=== PATIENT | male | born 1955 | race Caucasian/White ===

== ENCOUNTER 2020-04-07 12:30 | Inpatient (IN) ==
[2020-04-07] MEDS ORDERED: 0.9 % Sodium Chloride 1,000 ML IVC ONE (13:22)
[2020-04-07 13:28] LABS: Basophils % 0.2 %; Eosinophils # 0.1 K/mcL (0.0-0.6); Eosinophils % 1.6 %; Hematocrit 43.5 % (37.5-50.1); Immature Granulocytes % 0.2 % (0-4); Lymphocytes % 11.2 %; Mean Corpuscular HGB Conc 29.9 g/dL (31.6-35.5); Mean Corpuscular Hemoglobin 27.7 pg (28.0-33.3); Mean Corpuscular Volume 92.6 fL (83.0-100.0); Mean Platelet Volume 10.7 fL (9.4-12.4); Monocytes # 0.9 K/mcL (0.0-1.3); Monocytes % 10.5 %; Platelet Count 137 K/mcL (140-400); Red Cell Distribution Width 15.4 % (11.5-14.5); Segmented Neutrophils % 76.3 %; White Blood Count 8.6 K/mcL (4.3-11.1)
[2020-04-07 13:29] LABS: Neutrophils # 6.6 K/mcL (1.6-8.9)
[2020-04-07 13:33] LABS: INR 1.5; Prothrombin Time 16.6 Seconds (9.4-12.1)
[2020-04-07 13:36] LABS: Activated Partial Thrombo Time 32.9 Seconds (26.0-36.0)
[2020-04-07] MEDS ORDERED: Isovue-370 500 ML BOTTLE IVP ONE (13:47)
[2020-04-07 13:59] LABS: Alanine Aminotransferase 15 Units/L (7-52); Albumin 3.6 g/dL (3.5-5.7); Albumin/Globulin Ratio 1.2 (1.1-2.2); Alkaline Phosphatase 98 Units/L (34-104); Aspartate Amino Transferase 13 Units/L (13-39); BUN/Creatinine Ratio 16 (6-26); Bilirubin,Direct 0.2 mg/dL (0.0-0.2); Bilirubin,Indirect 0.7 mg/dL (0.0-1.0); Bilirubin,Total 0.9 mg/dL (0.3-1.0); Blood Urea Nitrogen 34 mg/dL (8-23); Calcium 8.4 mg/dL (8.6-10.3); Carbon Dioxide 37 mEq/L (23-29); Chloride 94 mEq/L (98-107); Creatine Kinase 47 Units/L (30-223); Ethanol < 10 mg/dL (Less than 10); Glucose 251 mg/dL (70-105); Osmolality,Calculated 300 (280-300); Potassium 4.4 mEq/L (3.5-5.1); Sodium 137 mEq/L (136-145); Total Protein 6.6 g/dL (6.4-8.9); Troponin I < 0.03 ng/mL (< 0.04); eGFR For African Americans 37 (> 60); eGFR For Non-African Americans 31 (> 60)
[2020-04-07 14:00] LABS: VBG HCO3 40 mEq/L (21-27); VBG PCO2 95 mmHg (41-51); VBG PH 7.23 pH Units (7.32-7.42); VBG PO2 52 mmHg (25-50)
[2020-04-07 14:03] LABS: Thyroid Stimulating Hormone 0.819 mcIU/mL (0.340-5.600)
[2020-04-07 14:54] LABS: Bacteria,Urine Moderate per hpf (None-Few); Bilirubin,Urine Negative (Negative); Blood,Urine Moderate (Negative); Clarity,Urine Ex.Turbid (Clear); Glucose,Urine (UA) >=1000 mg/dL (Normal); Ketones,Urine Negative (Negative); Leukocyte Esterase,Urine Large (Negative); Mucus,Urine Few per lpf (None-Few); Nitrite,Urine Negative (Negative); Protein,Urine Negative (Neg-Trace); RBC,Urine 15-30 per hpf (0-3); Urobilinogen,Urine Normal (Normal); WBC,Urine TNTC per hpf (0-3)
[2020-04-07 15:05] LABS: Amphetamine Screen,Urine Negative ng/mL (Cutoff=1000); Barbiturate Screen,Urine Negative ng/mL (Cutoff=200); Benzodiazepines Screen,Urine Negative ng/mL (Cutoff=200); Cannabinoid Screen,Urine Negative ng/mL (Cutoff = 50); Cocaine Screen,Urine Negative ng/mL (Cutoff= 300); Opiate Screen,Urine Positive ng/mL (Cutoff=300); Phencyclidine Screen,Urine Negative ng/mL (Cutoff=25)
[2020-04-07] MEDS ORDERED: cefTRIAXone 1,000 MG in 0.9 % Sodium Chloride Mini Bag 100 ML IVPB ONE (16:01)
[2020-04-07] MEDS ORDERED: cefTRIAXone 1,000 MG in Water for inj. (sterile) 10 ML IVP ONE (16:15)
[2020-04-07 16:35] LABS: VBG HCO3 33 mEq/L (21-27); VBG PCO2 63 mmHg (41-51); VBG PH 7.33 pH Units (7.32-7.42); VBG PO2 218 mmHg (25-50)
[2020-04-07] MEDS ORDERED: D5% in Water 1,000 ML IVC PRN (16:37)
[2020-04-07] MEDS ORDERED: Acetaminophen 325 MG TABLET PO PRN (16:37)
[2020-04-07] MEDS ORDERED: *HR* HYDROcodone/Acet 5/325 mg TABLET PO PRN (16:37)
[2020-04-07] MEDS ORDERED: *HR* Dextrose 50 % in Water (Vial) 50 ML VIAL IVP PRN (16:37)
[2020-04-07] MEDS ORDERED: Dextrose Gel 15 GM/37.5 ML TUBE PO PRN ×2 (16:37)
[2020-04-07] MEDS ORDERED: Naloxone 0.4 MG/ML INJ IVP PRN (16:37)
[2020-04-07] MEDS ORDERED: Ondansetron 4 MG/2 ML VIAL IVP PRN (16:37)
[2020-04-07 16:49] LABS: Adenovirus Not Detected (Not Detect); Bordetella Pertussis Not Detected (Not Detect); Chlamydophila pneumoniae Not Detected (Not Detect); Coronavirus 229E Not Detected (Not Detect); Coronavirus HKU1 Not Detected (Not Detect); Coronavirus NL63 Not Detected (Not Detect); Coronavirus OC43 Not Detected (Not Detect); Human Metapneumovirus Not Detected (Not Detect); Human Rhinovirus/Enterovirus Not Detected (Not Detect); Influenza A Subtype 2009 H1 Not Detected (Not Detect); Influenza B Not Detected (Not Detect); Mycoplasma pneumoniae Not Detected (Not Detect); Parainfluenza Virus 1 Not Detected (Not Detect); Parainfluenza Virus 2 Not Detected (Not Detect); Parainfluenza Virus 3 Not Detected (Not Detect); Parainfluenza Virus 4 Not Detected (Not Detect); Respiratory Syncytial Virus Not Detected (Not Detect); SARS-CoV-2 Not Detected (Not Detect)
[2020-04-07] MEDS ORDERED: Ipratropium/Albuterol Neb 3 ML IH PRN (17:02)
[2020-04-07] MEDS: MethylPREDNISolone 40 MG/ML VIAL IVP SCH (20:57)
[2020-04-07] MEDS: 0.9 % Sodium Chloride 1,000 ML IVC SCH (20:57)
[2020-04-07] MEDS ORDERED: Insulin DETEMIR 100 UNIT/ML X5UNITS SQ SCH (21:00)
[2020-04-07] MEDS: Ipratropium/Albuterol Neb 3 ML IH SCH (21:45)
[2020-04-07] MEDS: Budesonide/Formoterol 160/4.5 1 PUFF INH IH SCH (21:45)
[2020-04-08] MEDS: Ipratropium/Albuterol Neb 3 ML IH SCH ×2 (03:27→10:48)
[2020-04-08 06:53] LABS: Eosinophils % 0.1 %; Hematocrit 41.7 % (37.5-50.1); Hemoglobin 12.3 g/dL (12.9-16.9); Immature Granulocytes % 0.3 % (0-4); Lymphocytes # 0.4 K/mcL (0.6-4.6); Lymphocytes % 5.4 %; Mean Corpuscular HGB Conc 29.5 g/dL (31.6-35.5); Mean Corpuscular Hemoglobin 27.5 pg (28.0-33.3); Mean Corpuscular Volume 93.1 fL (83.0-100.0); Mean Platelet Volume 11.1 fL (9.4-12.4); Monocytes # 0.1 K/mcL (0.0-1.3); Monocytes % 1.7 %; Neutrophils # 7.2 K/mcL (1.6-8.9); Platelet Count 142 K/mcL (140-400); Red Blood Count 4.48 M/mcL (4.19-5.50); Red Cell Distribution Width 15.7 % (11.5-14.5); Segmented Neutrophils % 92.5 %; White Blood Count 7.8 K/mcL (4.3-11.1)
[2020-04-08 07:15] LABS: Potassium 5.3 mEq/L (3.5-5.1)
[2020-04-08 07:16] LABS: Magnesium 2.1 mg/dL (1.6-2.6)
[2020-04-08] MEDS: Insulin LISPRO 300 UNITS/3 ML VIAL SQ SCH ×4 (08:47→17:28)
[2020-04-08] MEDS: 0.9 % Sodium Chloride 1,000 ML IVC SCH ×4 (08:47→17:05)
[2020-04-08] MEDS: MethylPREDNISolone 40 MG/ML VIAL IVP SCH (08:48)
[2020-04-08] MEDS ORDERED: cefTRIAXone 1,000 MG in Water for inj. (sterile) 10 ML IVP SCH (09:00)
[2020-04-08] MEDS: Budesonide/Formoterol 160/4.5 1 PUFF INH IH SCH ×2 (10:48→19:53)
[2020-04-08] MEDS ORDERED: Famotidine 20 MG/2 ML VIAL IVP ONE (11:29)
[2020-04-08] MEDS ORDERED: Isovue-300 50ML VIAL ONE (15:07)
[2020-04-08] MEDS ORDERED: *HR* FentaNYL (PF) 100 MCG/2 ML VIAL IVP PRN (15:11)
[2020-04-08] MEDS ORDERED: Ipratropium/Albuterol Neb 3 ML IH PRN ×3 (15:13→16:43)
[2020-04-08] MEDS ORDERED: Lidocaine -MPF 2% 2 ML VIAL ONE (15:17)
[2020-04-08] MEDS ORDERED: Naloxone 0.4 MG/ML INJ IVP PRN (16:43)
[2020-04-08] MEDS ORDERED: Dextrose Gel 15 GM/37.5 ML TUBE PO PRN ×2 (16:43)
[2020-04-08] MEDS ORDERED: D5% in Water 1,000 ML IVC PRN (16:43)
[2020-04-08] MEDS ORDERED: *HR* Dextrose 50 % in Water (Vial) 50 ML VIAL IVP PRN (16:43)
[2020-04-08] MEDS ORDERED: Acetaminophen 325 MG TABLET PO PRN (16:43)
[2020-04-08] MEDS ORDERED: Insulin DETEMIR 100 UNIT/ML X5UNITS SQ SCH (21:00)
[2020-04-08] MEDS: *HR* HYDROcodone/Acet 5/325 mg TABLET PO PRN (21:07)
[2020-04-09] MEDS: 0.9 % Sodium Chloride 1,000 ML IVC SCH (00:50)
[2020-04-09 02:36] LABS: Basophils % 0.1 %; Eosinophils % 0.3 %; Hematocrit 40.9 % (37.5-50.1); Hemoglobin 11.9 g/dL (12.9-16.9); Immature Granulocytes % 0.2 % (0-4); Lymphocytes # 1.3 K/mcL (0.6-4.6); Lymphocytes % 12.8 %; Mean Corpuscular HGB Conc 29.1 g/dL (31.6-35.5); Mean Corpuscular Hemoglobin 27.5 pg (28.0-33.3); Mean Corpuscular Volume 94.7 fL (83.0-100.0); Mean Platelet Volume 10.8 fL (9.4-12.4); Monocytes # 0.8 K/mcL (0.0-1.3); Monocytes % 8.1 %; Platelet Count 149 K/mcL (140-400); Red Blood Count 4.32 M/mcL (4.19-5.50); Red Cell Distribution Width 15.4 % (11.5-14.5); Segmented Neutrophils % 78.5 %; White Blood Count 10.2 K/mcL (4.3-11.1)
[2020-04-09 02:47] LABS: VBG HCO3 39 mEq/L (21-27); VBG PCO2 87 mmHg (41-51); VBG PH 7.25 pH Units (7.32-7.42); VBG PO2 78 mmHg (25-50)
[2020-04-09 02:54] LABS: Calcium 8.3 mg/dL (8.6-10.3); Potassium 4.9 mEq/L (3.5-5.1)
[2020-04-09] MEDS: *HR* HYDROcodone/Acet 5/325 mg TABLET PO PRN (05:56)
[2020-04-09] MEDS ORDERED: Insulin LISPRO 300 UNITS/3 ML VIAL SQ SCH ×2 (07:30→17:13)
[2020-04-09 08:13] LABS: VBG HCO3 38 mEq/L (21-27); VBG PCO2 84 mmHg (41-51); VBG PH 7.26 pH Units (7.32-7.42); VBG PO2 186 mmHg (25-50)
[2020-04-09] MEDS: Insulin LISPRO 300 UNITS/3 ML VIAL SQ SCH ×2 (08:24→11:49)
[2020-04-09] MEDS ORDERED: cefTRIAXone 1,000 MG in Water for inj. (sterile) 10 ML IVP SCH (09:00)
[2020-04-09] MEDS ORDERED: MethylPREDNISolone 40 MG/ML VIAL IVP SCH (09:00)
[2020-04-09 10:45] VITALS: BP 143/75
[2020-04-09] MEDS: Budesonide/Formoterol 160/4.5 1 PUFF INH IH SCH (11:37)
[2020-04-09 12:16] LABS: VBG HCO3 35 mEq/L (21-27); VBG PCO2 73 mmHg (41-51); VBG PH 7.29 pH Units (7.32-7.42); VBG PO2 66 mmHg (25-50)
[2020-04-11 13:15] LABS: VBG HCO3 36 mEq/L (21-27); VBG PCO2 80 mmHg (41-51); VBG PH 7.27 pH Units (7.32-7.42); VBG PO2 194 mmHg (25-50)
== END 2020-04-09 14:54 | disposition home or self-care (01) | DRG 659 ==
LOC: 2ANU 12:30 → EMEROOARM 12:30 → SUATTDRO 18:26 → 2ANU 18:54
PROVIDERS: ADMIT Internal Medicine; ATTEND Internal Medicine

== ENCOUNTER 2020-04-20 21:01 | Observation (INO) ==
[~2020-04-20 21:01] MED LIST: cefTRIAXone 1,000 MG in 0.9 % Sodium Chloride Mini Bag 100 ML IVPB SCH
[2020-04-20] MEDS ORDERED: Naloxone 0.4 MG/ML INJ IVP PRN ×2 (23:01→23:03)
[2020-04-20] MEDS ORDERED: Acetaminophen 325 MG TABLET PO PRN (23:06)
[2020-04-20] MEDS ORDERED: *HR* Dextrose 50 % in Water (Vial) 50 ML VIAL IVP PRN (23:12)
[2020-04-20] MEDS ORDERED: D5% in Water 1,000 ML IVC PRN (23:12)
[2020-04-20] MEDS ORDERED: Dextrose Gel 15 GM/37.5 ML TUBE PO PRN ×2 (23:12)
[2020-04-20] MEDS ORDERED: 0.9 % Sodium Chloride 1,000 ML IVC SCH (23:15)
[2020-04-21] MEDS: cefTRIAXone 1,000 MG in 0.9 % Sodium Chloride Mini Bag 100 ML IVPB SCH (04:28)
[2020-04-21 05:54] LABS: Bilirubin,Urine Small (Negative); Blood,Urine Large (Negative); Clarity,Urine Turbid (Clear); Color,Urine Red (Yellow); Glucose,Urine (UA) 100 mg/dL (Normal); Ketones,Urine Negative (Negative); Leukocyte Esterase,Urine Trace (Negative); Nitrite,Urine Positive (Negative); PH,Urine 5.5 pH Units (5.0-8.0); Protein,Urine >=300 mg/dL (Neg-Trace); Specific Gravity,Urine >= 1.030 (1.010-1.025); Urobilinogen,Urine Normal (Normal)
[2020-04-21 05:56] LABS: Amorphous Sediment,Urine Few per hpf (None-Few); Bacteria,Urine Few per hpf (None-Few); RBC,Urine TNTC per hpf (0-3)
[2020-04-21 05:57] LABS: Granular Casts,Urine Few per lpf (None Seen)
[2020-04-21 06:00] LABS: Basophils % 0.1 %; Eosinophils % 0.1 %; Red Cell Distribution Width 15.5 % (11.5-14.5)
[2020-04-21 06:01] LABS: INR 1.8; Prothrombin Time 19.9 Seconds (9.4-12.1)
[2020-04-21 06:02] LABS: Hematocrit 33.1 % (37.5-50.1); Immature Granulocytes % 0.6 % (0-4); Immature Platelets 5.3 % (1.1-6.1); Lymphocytes # 0.7 K/mcL (0.6-4.6); Lymphocytes % 4.4 %; Mean Corpuscular HGB Conc 30.2 g/dL (31.6-35.5); Mean Corpuscular Hemoglobin 28.1 pg (28.0-33.3); Mean Platelet Volume 10.9 fL (9.4-12.4); Monocytes # 1.3 K/mcL (0.0-1.3); Monocytes % 8.4 %; Neutrophils # 13.4 K/mcL (1.6-8.9); Platelet Count 117 K/mcL (140-400); Red Blood Count 3.56 M/mcL (4.19-5.50); Segmented Neutrophils % 86.4 %; White Blood Count 15.5 K/mcL (4.3-11.1)
[2020-04-21 06:04] LABS: Activated Partial Thrombo Time 33.2 Seconds (26.0-36.0)
[2020-04-21 06:17] LABS: Albumin 2.8 g/dL (3.5-5.7); Bilirubin,Total 0.8 mg/dL (0.3-1.0); Calcium 8.1 mg/dL (8.6-10.3); Globulin 2.9 g/dL (2.4-3.5); Potassium 4.5 mEq/L (3.5-5.1); Total Protein 5.7 g/dL (6.4-8.9)
[2020-04-21] MEDS ORDERED: Albumin 25% 25gram/100mL 25 GM/100 ML IV.SOLN IVPB ONE (08:33)
[2020-04-21] MEDS ORDERED: Furosemide 40 MG/4 ML VIAL IVP ONE (08:34)
[2020-04-21 08:59] LABS: ABG Base Excess 7 mEq/L (-2 to 3); ABG HCO3 36 mEq/L (21-27); ABG Oxygen Saturation 86 % (95-98); ABG PCO2 76 mmHg (35-45); ABG PH 7.28 pH Units (7.32-7.45); ABG PO2 60 mmHg (85-104); ABG TCO2 38 mEq/L (20-26)
[2020-04-21] MEDS ORDERED: Albuterol 2.5 MG/3 ML NEBULIZER IH PRN (09:18)
[2020-04-21] MEDS: Insulin LISPRO 300 UNITS/3 ML VIAL SQ SCH ×3 (09:24→17:30)
[2020-04-21] MEDS: Budesonide/Formoterol 160/4.5 1 PUFF INH IH SCH ×2 (10:18→21:14)
[2020-04-21] MEDS: Ipratropium/Albuterol Neb 3 ML IH SCH ×3 (10:19→21:14)
[2020-04-21] MEDS ORDERED: Perflutren Lipid Microsphere 1.3 ML in 0.9 % Sodium Chloride 8.7 ML IVP PRN (16:44)
[2020-04-22] MEDS: Ipratropium/Albuterol Neb 3 ML IH SCH ×4 (03:54→21:51)
[2020-04-22] MEDS: cefTRIAXone 1,000 MG in 0.9 % Sodium Chloride Mini Bag 100 ML IVPB SCH (04:00)
[2020-04-22] MEDS: Insulin LISPRO 300 UNITS/3 ML VIAL SQ SCH ×3 (08:01→17:42)
[2020-04-22 08:16] LABS: ABG Base Excess 8 mEq/L (-2 to 3); ABG HCO3 35 mEq/L (21-27); ABG Oxygen Saturation 90 % (95-98); ABG PCO2 64 mmHg (35-45); ABG PH 7.35 pH Units (7.32-7.45); ABG PO2 63 mmHg (85-104); ABG TCO2 37 mEq/L (20-26)
[2020-04-22] MEDS ORDERED: Furosemide 40 MG in 0.9 % Sodium Chloride 50 ML IV ONE (08:36)
[2020-04-22] MEDS ORDERED: Albumin 25% 25gram/100mL 25 GM/100 ML IV.SOLN IVPB ONE (08:36)
[2020-04-22] MEDS: Budesonide/Formoterol 160/4.5 1 PUFF INH IH SCH ×2 (09:59→21:52)
[2020-04-22] MEDS ORDERED: Isovue-300 50ML VIAL ONE (10:10)
[2020-04-22] MEDS ORDERED: Ondansetron 4 MG/2 ML VIAL IVP ONE (10:13)
[2020-04-22] MEDS ORDERED: *HR* HYDROmorphone PF 0.5 MG/0.5 ML SYRINGE IVP PRN (10:13)
[2020-04-22] MEDS ORDERED: *HR* OxyCODONE Immed Rel 5 MG TABLET PO PRN (10:13)
[2020-04-22 10:42] LABS: Hemoglobin 9.3 g/dL (12.9-16.9); Mean Corpuscular Hemoglobin 27.2 pg (28.0-33.3); Mean Corpuscular Volume 90.6 fL (83.0-100.0); Mean Platelet Volume 11.5 fL (9.4-12.4); Platelet Count 107 K/mcL (140-400); Red Blood Count 3.42 M/mcL (4.19-5.50); Red Cell Distribution Width 15.4 % (11.5-14.5)
[2020-04-22 10:49] LABS: Calcium 8.2 mg/dL (8.6-10.3); Potassium 4.3 mEq/L (3.5-5.1)
[2020-04-22] MEDS ORDERED: *HR* Succinylcholine 200 MG/10 ML VIAL IVP ONE (11:01)
[2020-04-22] MEDS ORDERED: *HR* PHENYLEPHRINE 1,000 MCG/10 ML SYRINGE IVP ONE (11:01)
[2020-04-22] MEDS ORDERED: *HR* FentaNYL (PF) 100 MCG/2 ML VIAL ONE (11:01)
[2020-04-22] MEDS ORDERED: Ondansetron 4 MG/2 ML VIAL ONE (11:01)
[2020-04-22] MEDS ORDERED: Lidocaine -MPF 2% 2 ML VIAL ONE (11:01)
[2020-04-22] MEDS ORDERED: Dexamethasone 4 MG/ML VIAL ONE (11:01)
[2020-04-22] MEDS ORDERED: *HR* Propofol 200 MG/20 ML VIAL IVP ONE (11:01)
[2020-04-22] MEDS ORDERED: Naloxone 0.4 MG/ML INJ IVP PRN ×2 (12:30)
[2020-04-22] MEDS ORDERED: *HR* Dextrose 50 % in Water (Vial) 50 ML VIAL IVP PRN (12:30)
[2020-04-22] MEDS ORDERED: D5% in Water 1,000 ML IVC PRN (12:30)
[2020-04-22] MEDS ORDERED: Albuterol 2.5 MG/3 ML NEBULIZER IH PRN (12:30)
[2020-04-22] MEDS ORDERED: Dextrose Gel 15 GM/37.5 ML TUBE PO PRN ×2 (12:30)
[2020-04-22] MEDS ORDERED: Acetaminophen 325 MG TABLET PO PRN (12:30)
[2020-04-22] MEDS ORDERED: Perflutren Lipid Microsphere 1.3 ML in 0.9 % Sodium Chloride 8.7 ML IVP PRN (12:30)
[2020-04-22] MEDS: Albumin 25% 25gram/100mL 25 GM/100 ML IV.SOLN IVPB SCH (21:11)
[2020-04-23 02:37] LABS: Hemoglobin 8.9 g/dL (12.9-16.9); Mean Platelet Volume 11.3 fL (9.4-12.4)
[2020-04-23 02:39] LABS: Hematocrit 30.2 % (37.5-50.1); Immature Platelets 6.6 % (1.1-6.1); Mean Corpuscular HGB Conc 29.5 g/dL (31.6-35.5); Mean Corpuscular Hemoglobin 26.9 pg (28.0-33.3); Mean Corpuscular Volume 91.2 fL (83.0-100.0); Red Blood Count 3.31 M/mcL (4.19-5.50); Red Cell Distribution Width 15.3 % (11.5-14.5); White Blood Count 6.7 K/mcL (4.3-11.1)
[2020-04-23 02:59] LABS: Calcium 8.8 mg/dL (8.6-10.3)
[2020-04-23] MEDS: Ipratropium/Albuterol Neb 3 ML IH SCH ×4 (03:11→21:19)
[2020-04-23] MEDS ORDERED: cefTRIAXone 1,000 MG in 0.9 % Sodium Chloride Mini Bag 100 ML IVPB SCH (04:00)
[2020-04-23] MEDS: Albumin 25% 25gram/100mL 25 GM/100 ML IV.SOLN IVPB SCH (04:45)
[2020-04-23] MEDS: Insulin LISPRO 300 UNITS/3 ML VIAL SQ SCH ×3 (08:54→18:03)
[2020-04-23] MEDS: Furosemide 40 MG/4 ML VIAL IVP SCH (08:55)
[2020-04-23] MEDS: Budesonide/Formoterol 160/4.5 1 PUFF INH IH SCH ×2 (09:26→21:19)
[2020-04-23] MEDS: Ampicillin/Sulbactam 1,500 MG in 0.9 % Sodium Chloride Mini Bag 100 ML IVPB SCH ×3 (13:33→22:28)
[2020-04-23] MEDS ORDERED: Insulin DETEMIR 100 UNIT/ML X5UNITS SQ SCH (21:00)
[2020-04-24] MEDS: Ipratropium/Albuterol Neb 3 ML IH SCH ×2 (03:24→10:49)
[2020-04-24] MEDS: Albumin 25% 25gram/100mL 25 GM/100 ML IV.SOLN IVPB SCH ×2 (04:55)
[2020-04-24] MEDS: Ampicillin/Sulbactam 1,500 MG in 0.9 % Sodium Chloride Mini Bag 100 ML IVPB SCH ×2 (05:08→12:46)
[2020-04-24 05:51] LABS: Hematocrit 29.9 % (37.5-50.1); Hemoglobin 9.1 g/dL (12.9-16.9); Mean Corpuscular HGB Conc 30.4 g/dL (31.6-35.5); Mean Corpuscular Hemoglobin 27.6 pg (28.0-33.3); Mean Corpuscular Volume 90.6 fL (83.0-100.0); Platelet Count 119 K/mcL (140-400); Red Cell Distribution Width 15.3 % (11.5-14.5); White Blood Count 6.2 K/mcL (4.3-11.1)
[2020-04-24 06:13] LABS: BUN/Creatinine Ratio 34 (6-26); Blood Urea Nitrogen 40 mg/dL (8-23); Calcium 8.9 mg/dL (8.6-10.3); Carbon Dioxide 36 mEq/L (23-29); Chloride 99 mEq/L (98-107); Glucose 151 mg/dL (70-105); Osmolality,Calculated 303 (280-300); Potassium 3.8 mEq/L (3.5-5.1); Sodium 140 mEq/L (136-145); eGFR For African Americans > 60 (> 60); eGFR For Non-African Americans > 60 (> 60)
[2020-04-24] MEDS: Insulin LISPRO 300 UNITS/3 ML VIAL SQ SCH ×2 (09:15→12:46)
[2020-04-24] MEDS: Furosemide 40 MG/4 ML VIAL IVP SCH (09:15)
[2020-04-24] MEDS: Budesonide/Formoterol 160/4.5 1 PUFF INH IH SCH (10:49)
[2020-04-24 11:46] VITALS: BP 121/65
== END 2020-04-24 14:20 | disposition home or self-care (01) ==
LOC: 2ANU → SUATTDRO 22:50
PROVIDERS: ADMIT Family Medicine; ATTEND Internal Medicine

== ENCOUNTER 2022-06-13 17:51 | Inpatient (IN) ==
[2022-06-13] MEDS ORDERED: Albuterol 2.5 MG/3 ML NEBULIZER IH ONE ×2 (18:34→20:22)
[2022-06-13 19:16] LABS: Basophils % 0.2 %; Eosinophils # 0.1 K/mcL (0.0-0.6); Eosinophils % 0.5 %; Hemoglobin 11.3 g/dL (12.9-16.9); Immature Granulocytes % 0.4 % (0-4); Lymphocytes # 0.9 K/mcL (0.6-4.6); Lymphocytes % 9.3 %; Mean Corpuscular HGB Conc 29.7 g/dL (31.6-35.5); Mean Corpuscular Hemoglobin 26.7 pg (28.0-33.3); Mean Corpuscular Volume 89.6 fL (83.0-100.0); Mean Platelet Volume 10.7 fL (9.4-12.4); Monocytes # 0.9 K/mcL (0.0-1.3); Monocytes % 9.7 %; Neutrophils # 7.4 K/mcL (1.6-8.9); Platelet Count 218 K/mcL (140-400); Red Blood Count 4.24 M/mcL (4.19-5.50); Red Cell Distribution Width 15.1 % (11.5-14.5); Segmented Neutrophils % 79.9 %; White Blood Count 9.3 K/mcL (4.3-11.1)
[2022-06-13 19:41] LABS: BUN/Creatinine Ratio 18 (6-26); Blood Urea Nitrogen 15 mg/dL (8-23); Calcium 9.2 mg/dL (8.6-10.3); Carbon Dioxide 33 mEq/L (23-29); Chloride 102 mEq/L (98-107); Glucose 209 mg/dL (70-105); Osmolality,Calculated 295 (280-300); Potassium 4.3 mEq/L (3.5-5.1); Sodium 139 mEq/L (136-145); Troponin I 0.03 ng/mL (< 0.04)
[2022-06-13] MEDS ORDERED: Ipratropium/Albuterol Neb 3 ML IH ONE (20:21)
[2022-06-13 20:24] LABS: INR 1.5; Prothrombin Time 16.3 Seconds (9.4-12.1)
[2022-06-13 20:27] LABS: Activated Partial Thrombo Time 30.3 Seconds (26.0-36.0)
[2022-06-13] MEDS ORDERED: methylPREDNISolone 125 MG/2 ML VIAL IVP ONE (21:09)
[2022-06-13 21:10] LABS: VBG HCO3 33 mEq/L (21-27); VBG PCO2 70 mmHg (41-51); VBG PH 7.28 pH Units (7.32-7.42); VBG PO2 47 mmHg (25-50)
[2022-06-13] MEDS ORDERED: Iopamidol - 370 500 ML MLS IVP ONE (21:24)
[2022-06-13] MEDS ORDERED: cefTRIAXone 1,000 MG in 0.9 % Sodium Chloride Mini Bag 100 ML IVPB ONE (22:10)
[2022-06-13] MEDS ORDERED: Azithromycin 500 MG in 0.9 % Sodium Chloride 250 ML IVPB ONE (22:11)
[2022-06-13] MEDS ORDERED: Ondansetron 4 MG/2 ML VIAL IVP PRN (23:56)
[2022-06-13] MEDS ORDERED: Naloxone 0.4 MG/ML INJ IVP PRN (23:56)
[2022-06-13] MEDS ORDERED: Acetaminophen 325 MG TABLET PO PRN (23:56)
[2022-06-14] MEDS ORDERED: D5% in Water 1,000 ML IVC PRN (00:07)
[2022-06-14] MEDS ORDERED: Dextrose Gel 15 GM/37.5 ML TUBE PO PRN ×2 (00:07)
[2022-06-14] MEDS ORDERED: *HR* Dextrose 50 % in Water (Syg) 50 ML SYRINGE IVP PRN (00:07)
[2022-06-14] MEDS: Insulin LISPRO 300 UNITS/3 ML VIAL SUBQ SCH ×5 (00:46→21:50)
[2022-06-14 03:40] LABS: Bilirubin,Urine Negative (Negative); Blood,Urine Moderate (Negative); Clarity,Urine Clear (Clear); Color,Urine Light-Yellow (Yellow); Glucose,Urine (UA) >=1000 mg/dL (Normal); Ketones,Urine 20 mg/dL (Negative); Leukocyte Esterase,Urine Moderate (Negative); Mucus,Urine Few per lpf (None-Few); Nitrite,Urine Positive (Negative); Protein,Urine 100 mg/dL (Neg-Trace); RBC,Urine 15-30 per hpf (0-3); Specific Gravity,Urine > 1.030 (1.010-1.025); Urobilinogen,Urine Normal (Normal); WBC,Urine 50-100 per hpf (0-3)
[2022-06-14] MEDS: Levalbuterol Neb 0.63 MG/3 ML IH SCH ×4 (04:42→21:07)
[2022-06-14] MEDS: Ipratropium Neb 0.5 MG NEBULIZER IH SCH ×4 (04:42→21:07)
[2022-06-14 05:10] LABS: Basophils % 0.1 %; Hematocrit 36.1 % (37.5-50.1); Hemoglobin 10.7 g/dL (12.9-16.9); Immature Granulocytes % 0.4 % (0-4); Lymphocytes # 0.3 K/mcL (0.6-4.6); Lymphocytes % 3.2 %; Mean Corpuscular HGB Conc 29.6 g/dL (31.6-35.5); Mean Corpuscular Hemoglobin 26.1 pg (28.0-33.3); Mean Platelet Volume 10.4 fL (9.4-12.4); Monocytes # 0.1 K/mcL (0.0-1.3); Monocytes % 1.2 %; Neutrophils # 9.1 K/mcL (1.6-8.9); Platelet Count 211 K/mcL (140-400); Segmented Neutrophils % 95.1 %; White Blood Count 9.6 K/mcL (4.3-11.1)
[2022-06-14 05:29] LABS: BUN/Creatinine Ratio 17 (6-26); Blood Urea Nitrogen 16 mg/dL (8-23); Calcium 8.9 mg/dL (8.6-10.3); Carbon Dioxide 30 mEq/L (23-29); Chloride 101 mEq/L (98-107); Glucose 338 mg/dL (70-105); Osmolality,Calculated 298 (280-300); Potassium 4.7 mEq/L (3.5-5.1); Sodium 137 mEq/L (136-145)
[2022-06-14] MEDS ORDERED: Insulin LISPRO 300 UNITS/3 ML VIAL SUBQ SCH (06:00)
[2022-06-14] MEDS ORDERED: MethylPREDNISolone 40 MG/ML VIAL IVP SCH (08:00)
[2022-06-14] MEDS: MethylPREDNISolone 40 MG/ML VIAL IVP SCH (08:43)
[2022-06-14] MEDS: cefTRIAXone 1,000 MG in 0.9 % Sodium Chloride Mini Bag 100 ML IVPB SCH (08:43)
[2022-06-14] MEDS: Insulin DETEMIR 100 UNIT/ML X5UNITS SUBQ SCH ×2 (08:43→21:49)
[2022-06-14] MEDS: Apixaban 5 MG TABLET PO SCH ×2 (08:44→21:38)
[2022-06-14 10:02] LABS: Adenovirus Not Detected (Not Detect); Bordetella Pertussis Not Detected (Not Detect); Chlamydophila pneumoniae Not Detected (Not Detect); Coronavirus 229E Not Detected (Not Detect); Coronavirus HKU1 Not Detected (Not Detect); Coronavirus NL63 Not Detected (Not Detect); Coronavirus OC43 Not Detected (Not Detect); Human Metapneumovirus Not Detected (Not Detect); Human Rhinovirus/Enterovirus Not Detected (Not Detect); Influenza A Subtype 2009 H1 Not Detected (Not Detect); Influenza B Not Detected (Not Detect); Mycoplasma pneumoniae Not Detected (Not Detect); Parainfluenza Virus 1 Not Detected (Not Detect); Parainfluenza Virus 2 Not Detected (Not Detect); Parainfluenza Virus 3 Not Detected (Not Detect); Parainfluenza Virus 4 Not Detected (Not Detect); Respiratory Syncytial Virus Not Detected (Not Detect); SARS-CoV-2 Not Detected (Not Detect)
[2022-06-14] MEDS: Azithromycin 500 MG in 0.9 % Sodium Chloride 250 ML IVPB SCH (21:38)
[2022-06-14 22:22] LABS: Enterococcus faecalis by PCR Not Detected (Not Detect); mecA/C Methicillin-Resist Gene DETECTED (Not Detect)
[2022-06-14 22:28] LABS: Staph epidermidis by PCR DETECTED (Not Detect)
[2022-06-14 22:29] LABS: A.calcoaceticus-baumannii cplx Not Detected (Not Detect); Bacteroides fragilis by PCR Not Detected (Not Detect); Candida albicans by PCR Not Detected (Not Detect); Candida auris by PCR Not Detected (Not Detect); Candida glabrata by PCR Not Detected (Not Detect); Candida krusei by PCR Not Detected (Not Detect); Candida parapsilosis by PCR Not Detected (Not Detect); Candida tropicalis by PCR Not Detected (Not Detect); Crypto. neoformans/gattii PCR Not Detected (Not Detect); Enterobacter cloacae Cmplx PCR Not Detected (Not Detect); Enterobacterales by PCR Not Detected (Not Detect); Enterococcus faecium by PCR Not Detected (Not Detect); Escherichia coli by PCR Not Detected (Not Detect); Klebs. pneumoniae group by PCR Not Detected (Not Detect); Klebsiella aerogenes by PCR Not Detected (Not Detect); Klebsiella oxytoca by PCR Not Detected (Not Detect); Proteus by PCR Not Detected (Not Detect); Pseudomonas aeruginosa by PCR Not Detected (Not Detect); Salmonella species by PCR Not Detected (Not Detect); Serratia marcescens by PCR Not Detected (Not Detect); Staph lugdunensis by PCR Not Detected (Not Detect); Staphylococcus aureus by PCR Not Detected (Not Detect); Stenotrophomonas maltophilia Not Detected (Not Detect); Streptococcus agalactiae(B)PCR Not Detected (Not Detect); Streptococcus by PCR Not Detected (Not Detect); Streptococcus pneumoniae PCR Not Detected (Not Detect); Streptococcus pyogenes (A) PCR Not Detected (Not Detect)
[2022-06-15] MEDS: Levalbuterol Neb 0.63 MG/3 ML IH SCH ×4 (04:20→22:28)
[2022-06-15] MEDS: Ipratropium Neb 0.5 MG NEBULIZER IH SCH ×4 (04:20→22:28)
[2022-06-15 05:06] LABS: Triiodothyronine (T3) Free 3.06 pg/mL (2.50-3.90)
[2022-06-15] MEDS: Apixaban 5 MG TABLET PO SCH ×2 (08:42→20:32)
[2022-06-15] MEDS: MethylPREDNISolone 40 MG/ML VIAL IVP SCH (08:42)
[2022-06-15] MEDS: cefTRIAXone 1,000 MG in 0.9 % Sodium Chloride Mini Bag 100 ML IVPB SCH (08:43)
[2022-06-15] MEDS: Insulin DETEMIR 100 UNIT/ML X5UNITS SUBQ SCH ×2 (08:47→20:35)
[2022-06-15] MEDS: Insulin LISPRO 300 UNITS/3 ML VIAL SUBQ SCH ×4 (08:53→20:36)
[2022-06-15] MEDS: Vancomycin 2,000 MG/520 ML IV.SOLN IVPB SCH ×2 (11:36→21:39)
[2022-06-15] MEDS: *HR* Metoprolol 5 MG/5 ML VIAL IVP PRN (12:48)
[2022-06-15] MEDS: Furosemide 40 MG TABLET PO SCH (13:50)
[2022-06-15] MEDS: Finasteride 5 MG TABLET PO SCH ×2 (13:50→20:32)
[2022-06-15] MEDS: Azithromycin 500 MG in 0.9 % Sodium Chloride 250 ML IVPB SCH (20:25)
[2022-06-15] MEDS: Pregabalin 75 MG CAPSULE PO SCH (20:31)
[2022-06-15] MEDS: Budesonide/Formoterol 160/4.5 1 PUFF INH IH SCH (22:28)
[2022-06-16] MEDS: *HR* Metoprolol 5 MG/5 ML VIAL IVP PRN ×3 (03:12→21:26)
[2022-06-16] MEDS: Levalbuterol Neb 0.63 MG/3 ML IH SCH ×4 (03:52→22:27)
[2022-06-16] MEDS: Ipratropium Neb 0.5 MG NEBULIZER IH SCH ×4 (03:52→22:27)
[2022-06-16 04:36] LABS: Hematocrit 36.4 % (37.5-50.1); Hemoglobin 10.9 g/dL (12.9-16.9); Mean Corpuscular HGB Conc 29.9 g/dL (31.6-35.5); Mean Corpuscular Hemoglobin 26.5 pg (28.0-33.3); Mean Corpuscular Volume 88.3 fL (83.0-100.0); Mean Platelet Volume 10.1 fL (9.4-12.4); Platelet Count 280 K/mcL (140-400); Red Blood Count 4.12 M/mcL (4.19-5.50); Red Cell Distribution Width 15.1 % (11.5-14.5); White Blood Count 10.2 K/mcL (4.3-11.1)
[2022-06-16 04:54] LABS: Calcium 8.5 mg/dL (8.6-10.3); Potassium 4.2 mEq/L (3.5-5.1)
[2022-06-16] MEDS: Insulin LISPRO 300 UNITS/3 ML VIAL SUBQ SCH ×4 (09:20→21:44)
[2022-06-16] MEDS: Insulin DETEMIR 100 UNIT/ML X5UNITS SUBQ SCH ×2 (09:21→21:44)
[2022-06-16] MEDS: Furosemide 40 MG TABLET PO SCH (09:21)
[2022-06-16] MEDS: Apixaban 5 MG TABLET PO SCH ×2 (09:21→21:33)
[2022-06-16] MEDS: Pregabalin 75 MG CAPSULE PO SCH ×2 (09:22→21:33)
[2022-06-16] MEDS: Magnesium Oxide 400 MG TABLET PO SCH (09:22)
[2022-06-16] MEDS: lisinopriL 20 MG TABLET PO SCH (09:24)
[2022-06-16] MEDS: Budesonide/Formoterol 160/4.5 1 PUFF INH IH SCH ×2 (10:40→22:27)
[2022-06-16] MEDS: cefTRIAXone 1,000 MG in 0.9 % Sodium Chloride Mini Bag 100 ML IVPB SCH (12:22)
[2022-06-16] MEDS: MethylPREDNISolone 40 MG/ML VIAL IVP SCH (12:24)
[2022-06-16] MEDS: Vancomycin 2,000 MG/520 ML IV.SOLN IVPB SCH (13:41)
[2022-06-16] MEDS ORDERED: Chloraseptic Spray 177 ML BOTTLE MM PRN (20:48)
[2022-06-16] MEDS: Azithromycin 500 MG in 0.9 % Sodium Chloride 250 ML IVPB SCH (21:26)
[2022-06-16] MEDS: Finasteride 5 MG TABLET PO SCH (21:33)
[2022-06-16] MEDS: Melatonin 3 MG TABLET PO PRN (21:54)
[2022-06-17] MEDS ORDERED: Vancomycin 2,000 MG/520 ML IV.SOLN IVPB SCH (02:00)
[2022-06-17] MEDS: Levalbuterol Neb 0.63 MG/3 ML IH SCH ×4 (04:01→22:46)
[2022-06-17] MEDS: Ipratropium Neb 0.5 MG NEBULIZER IH SCH ×4 (04:01→22:46)
[2022-06-17] MEDS: lisinopriL 20 MG TABLET PO SCH (09:31)
[2022-06-17] MEDS: Furosemide 40 MG TABLET PO SCH (09:31)
[2022-06-17] MEDS: predniSONE 20 MG TABLET PO SCH (09:31)
[2022-06-17] MEDS: Pregabalin 75 MG CAPSULE PO SCH ×2 (09:31→21:03)
[2022-06-17] MEDS: Apixaban 5 MG TABLET PO SCH ×2 (09:31→21:03)
[2022-06-17] MEDS: Magnesium Oxide 400 MG TABLET PO SCH (09:31)
[2022-06-17] MEDS: cefTRIAXone 1,000 MG in 0.9 % Sodium Chloride Mini Bag 100 ML IVPB SCH (09:33)
[2022-06-17] MEDS: Insulin LISPRO 300 UNITS/3 ML VIAL SUBQ SCH ×4 (09:34→21:07)
[2022-06-17] MEDS: *HR* Metoprolol 5 MG/5 ML VIAL IVP PRN ×2 (09:40→20:56)
[2022-06-17] MEDS: Insulin DETEMIR 100 UNIT/ML X5UNITS SUBQ SCH ×2 (09:40→21:08)
[2022-06-17] MEDS: Budesonide/Formoterol 160/4.5 1 PUFF INH IH SCH ×2 (10:54→22:47)
[2022-06-17] MEDS: Doxycycline 100 MG CAPSULE PO SCH ×2 (12:27→21:03)
[2022-06-17] MEDS: Azithromycin 500 MG in 0.9 % Sodium Chloride 250 ML IVPB SCH (20:57)
[2022-06-17] MEDS: Finasteride 5 MG TABLET PO SCH (21:03)
[2022-06-17] MEDS: Melatonin 3 MG TABLET PO PRN (21:03)
[2022-06-18] MEDS: Levalbuterol Neb 0.63 MG/3 ML IH SCH ×4 (04:18→22:08)
[2022-06-18] MEDS: Ipratropium Neb 0.5 MG NEBULIZER IH SCH ×4 (04:18→22:08)
[2022-06-18] MEDS: *HR* Metoprolol 5 MG/5 ML VIAL IVP PRN (06:56)
[2022-06-18 08:43] LABS: Hematocrit 37.2 % (37.5-50.1); Hemoglobin 11.1 g/dL (12.9-16.9); Mean Corpuscular HGB Conc 29.8 g/dL (31.6-35.5); Mean Corpuscular Hemoglobin 26.1 pg (28.0-33.3); Mean Corpuscular Volume 87.5 fL (83.0-100.0); Mean Platelet Volume 10.3 fL (9.4-12.4); Platelet Count 292 K/mcL (140-400); Red Blood Count 4.25 M/mcL (4.19-5.50); Red Cell Distribution Width 14.7 % (11.5-14.5); White Blood Count 11.2 K/mcL (4.3-11.1)
[2022-06-18 09:03] LABS: BUN/Creatinine Ratio 18 (6-26); Blood Urea Nitrogen 16 mg/dL (8-23); Calcium 8.5 mg/dL (8.6-10.3); Carbon Dioxide 36 mEq/L (23-29); Chloride 101 mEq/L (98-107); Glucose 191 mg/dL (70-105); Osmolality,Calculated 294 (280-300); Potassium 4.3 mEq/L (3.5-5.1); Sodium 139 mEq/L (136-145)
[2022-06-18] MEDS: Pregabalin 75 MG CAPSULE PO SCH ×2 (09:15→20:02)
[2022-06-18] MEDS: Apixaban 5 MG TABLET PO SCH ×2 (09:16→20:02)
[2022-06-18] MEDS: Furosemide 40 MG TABLET PO SCH (09:16)
[2022-06-18] MEDS: predniSONE 20 MG TABLET PO SCH (09:16)
[2022-06-18] MEDS: Magnesium Oxide 400 MG TABLET PO SCH (09:16)
[2022-06-18] MEDS: lisinopriL 20 MG TABLET PO SCH (09:16)
[2022-06-18] MEDS: Doxycycline 100 MG CAPSULE PO SCH ×2 (09:17→20:02)
[2022-06-18] MEDS: *HR* HYDROcodone/Acet 7.5/325 mg TABLET PO PRN ×2 (09:19→17:47)
[2022-06-18] MEDS: Insulin DETEMIR 100 UNIT/ML X5UNITS SUBQ SCH ×2 (09:20→20:01)
[2022-06-18] MEDS: Insulin LISPRO 300 UNITS/3 ML VIAL SUBQ SCH ×4 (09:20→20:01)
[2022-06-18] MEDS: Budesonide/Formoterol 160/4.5 1 PUFF INH IH SCH ×2 (10:01→22:08)
[2022-06-18] MEDS: Melatonin 3 MG TABLET PO PRN (20:02)
[2022-06-18] MEDS: Finasteride 5 MG TABLET PO SCH (20:02)
[2022-06-19] MEDS: *HR* Metoprolol 5 MG/5 ML VIAL IVP PRN (03:44)
[2022-06-19] MEDS: Levalbuterol Neb 0.63 MG/3 ML IH SCH ×3 (04:32→15:34)
[2022-06-19] MEDS: Ipratropium Neb 0.5 MG NEBULIZER IH SCH ×3 (04:32→15:34)
[2022-06-19 05:01] LABS: Hematocrit 35.6 % (37.5-50.1); Hemoglobin 10.6 g/dL (12.9-16.9); Mean Corpuscular HGB Conc 29.8 g/dL (31.6-35.5); Mean Corpuscular Hemoglobin 25.9 pg (28.0-33.3); Mean Corpuscular Volume 86.8 fL (83.0-100.0); Mean Platelet Volume 10.3 fL (9.4-12.4); Platelet Count 268 K/mcL (140-400); Red Cell Distribution Width 14.6 % (11.5-14.5); White Blood Count 11.8 K/mcL (4.3-11.1)
[2022-06-19 05:08] LABS: Calcium 8.4 mg/dL (8.6-10.3); Potassium 4.2 mEq/L (3.5-5.1)
[2022-06-19] MEDS: lisinopriL 20 MG TABLET PO SCH (08:24)
[2022-06-19] MEDS: Apixaban 5 MG TABLET PO SCH (08:24)
[2022-06-19] MEDS: Furosemide 40 MG TABLET PO SCH (08:24)
[2022-06-19] MEDS: Magnesium Oxide 400 MG TABLET PO SCH (08:25)
[2022-06-19] MEDS: Doxycycline 100 MG CAPSULE PO SCH (08:25)
[2022-06-19] MEDS: predniSONE 20 MG TABLET PO SCH (08:25)
[2022-06-19] MEDS: Pregabalin 75 MG CAPSULE PO SCH (08:25)
[2022-06-19] MEDS: Insulin LISPRO 300 UNITS/3 ML VIAL SUBQ SCH ×2 (08:26→12:00)
[2022-06-19] MEDS: Insulin DETEMIR 100 UNIT/ML X5UNITS SUBQ SCH (09:50)
[2022-06-19] MEDS: *HR* HYDROcodone/Acet 7.5/325 mg TABLET PO PRN (09:50)
[2022-06-19] MEDS: Budesonide/Formoterol 160/4.5 1 PUFF INH IH SCH (10:25)
[2022-06-19 15:12] VITALS: BP 163/83; PULSE 80; TEMP 98; O2SAT 94
== END 2022-06-19 15:50 | disposition home or self-care (01) | DRG 871 ==
LOC: 3NENU 17:51 → EMEROOARM 17:51 → SUATTDRO 23:47 → 3NENU 06-14 00:12
PROVIDERS: ADMIT Pharmacist; ATTEND Internal Medicine